=== PATIENT | male | born 1970 | race Two or more races ===

== ENCOUNTER 2017-03-04 08:13 | Observation (INO) | payer MEDICAID ==
[~2017-03-04] VITALS: Ht 172.7 cm; Wt 81.8 kg
--- NOTE | ~2017-03-04 | ECHO ---
Transthoracic Echocardiography Report (TTE) Demographics Patient Name MATILDA MEEK Date of Study 03/04/2017 Patient Number [id number] Visit Number [id number] Date of 1970 Room Number G6305 Accession Number [id number] Gender Male Age 46 year(s) Referring Erica Marie [employer] Chris Almazan RVAicha, Physician FARHEEN Physician Interpreting Sabrina Mike Irrigation Specialist Physician A Supervising Ordering Physician Jeremiah Britt MD, MD/MLP Nurse Stress Pharmaceutical Officer Conclusions Contractility Score Summary Normal Left Ventricular contractility was noted. Summary The estimated left ventricular ejection fraction is 50-55%. Normal left ventricle size and function. Diastolic assessment reveals normal relaxation. The left atrium is mildly dilated. Mild tricuspid regurgitation by color Doppler. Procedure Type of Study TTE procedure:2D Echocardiogram, Echo Limited w/o Contrast. Procedure Date Date: 03/04/2017 Start: 09:35 AM Study Location: ER Technical Quality: Good visualization Indications:Chest pain. Appropriate Use Criteria: 8 Patient Status: STAT Rhythm: NSR HR: 60 bpm BP: 104/71 mmHg Allergies - No known allergies. M-Mode/2D Measurements LV Diastolic Dimension: 3.55 cm LV Systolic Dimension: 2.41 cm LV Septum Diastolic: 0.83 cm LV PW Diastolic: 0.64 cm AO Root Dimension: 3 cm Cardiac Output: 3.75 l/min AV Cusp Separation: 1.7 cm RV Diastolic Dimension: 2.27 cm LA volume: 62 ml LVOT: 2 cm RV Base: 3.05 cm LVOT VTI: 19.9 cm RV Mid: 2.88 cm LV Stroke volume: 62.49 ml TAPSE: 1.39 cm TDI-S': 9.32 cm/s Doppler Measurements AV Peak Velocity: 1.01 m/s MV Peak E-Wave: 0.68 m/s AV Peak Gradient: 4.08 mmHg MV Peak A-Wave: 0.45 m/s AV Mean Gradient: 2 mmHg MV E/A Ratio: 1.51 LVOT Peak Velocity: 0.95 m/s MV P1/2t: 81 msec TR Gradient:13.25 mmHg PV Peak Velocity: 0.67 m/s Estimated RAP:5 mmHg PV Peak Gradient: 1.78 mmHg Estimated RVSP: 18 mmHg Estimated PASP: 18.25 mmHg E' Septal Velocity: 0.07 m/s A' Septal Velocity: 0.08 m/s E' Lateral Velocity: 0.13 m/s A' Lateral Velocity: 0.07 m/s Findings Left Ventricle Normal left ventricle size and function. Diastolic assessment reveals normal relaxation. Right Ventricle Normal right ventricle structure and function. Left Atrium The left atrium is mildly dilated. There is no evidence of patent foramen ovale or atrial septal defect by color Doppler. Right Atrium Normal right atrial size. Unable to assess IVC for collapse. Mitral Valve Normal mitral valve structure and function. Trivial mitral regurgitation by color Doppler. Aortic Valve Normal aortic valve structure and function. Tricuspid Valve Mild tricuspid regurgitation by color Doppler. Normal estimated pulmonary artery pressure. Pulmonic Valve Normal pulmonic valve structure and function. Pericardial Effusion No evidence of pericardial effusion. Miscellaneous Visualized portions of the aortic root and ascending aorta appear normal in size. Pleural Effusion No evidence of pleural effusion. Contractility Score LV regional wall motion:(0-Non visualized 1-Normal 2-Hypokinesis 3-Akinesis 4-Dyskinesis 5-Aneurysm) Signature dtt: Milena Bennett dtd: 03/04/17 0935 Physician Self Edit
--- NOTE | ~2017-03-04 | ER ---
PATIENT'S NAME: MATILDA MEEK [facility] AGE: 46 Y [address] ROOM: [place] [address] LOCATION: GPCU ADMIT DATE: 03/04/2017 ER/Outpatient Report DISCHARGE DATE: FAMILY PHYSICIAN: Igor Maldonado MD ATTENDING PHYSICIAN: Henny Davis CHIEF COMPLAINT: Chest pain. HISTORY OF PRESENT ILLNESS: The patient states that at 6 o'clock this morning, he developed pressure in his chest. There is a burning sensation associated with it, and this feels like prior heart attack. He has a history of several-vessel CABG done by Dr. Vieyra. He follows with Dr. Bennett, his continuous improvement consultant. He has been taking all his medications appropriately. He denies any pain in his back. It does not radiate to his jaw. The pain has been constant and increasing since its onset. He has received aspirin and nitro per EMS with slight decrease in his pain. He denies any drugs but does occasionally use marijuana. He quit smoking in 2016. Denies any other alcohol use. PAST MEDICAL HISTORY: Documented on the record and reviewed by me. SOCIAL HISTORY: Documented on the record and reviewed by me. MEDICATIONS: Documented on the record and reviewed by me. ALLERGIES: DOCUMENTED ON THE RECORD AND REVIEWED BY ME. REVIEW OF SYSTEMS: All systems were reviewed and negative except as noted in the HPI. PHYSICAL EXAMINATION: VITAL SIGNS: Blood pressure 113/79, pulse 67, respiratory rate is 19, temp 96.7, SpO2 is 100% on room air. Pain is rated at 8/10. GENERAL: An age-appropriate male, in moderate obvious pain, in no respiratory distress, recumbent on the exam table. NEURO: The patient is awake and alert. He moves all extremities appropriately. No focal deficits. No asymmetry on exam. Oriented to person, place, and situation. HEENT: Normocephalic, atraumatic. Eyes are PERRL. Oropharynx is clear. NECK: Supple. Trachea is midline. PATIENT'S NAME: MATILDA MEEK [facility] AGE: 46 Y [address] ROOM: [address] [address] LOCATION: GPCU ADMIT DATE: 03/04/2017 ER/Outpatient Report DISCHARGE DATE: FAMILY PHYSICIAN: Igor Maldonado MD ATTENDING PHYSICIAN: Henny Davis CHEST: Heart is regular rate and rhythm with no obvious murmurs. LUNGS: Grossly clear to auscultation bilaterally with no rhonchi, wheezes, or rales. There is some tenderness on the right side of the chest nonfocal. ABDOMEN: Soft, nontender, and nondistended. No rebound or guarding. No masses. BACK: Grossly normal to inspection and palpation. EXTREMITIES: Warm and well perfused. No evidence of DVT. SKIN: Warm, dry, and intact. No obvious rashes. LABORATORY DATA AND X-RAYS: Chest x-ray, grossly unremarkable per my read. EKG is a sinus rhythm, rate of 70 with normal intervals and axis. Some slight ST-segment elevation in the precordial leads, that does not meet criteria as compared to prior EKG from 09/28/2014, consistent with EMS EKGs. Repeat EKG remains stable with nonspecific ST-segment elevation. CMS without any abnormalities. Magnesium 2.1. CK-MB at 2.4. Troponin I is below threshold. CBC reveals WBC of 11.3, no other significant abnormalities. INR 0.93. D-dimer 0.37. IMPRESSION: Chest pain, concern for possible unstable angina. EMERGENCY DEPARTMENT COURSE: The patient was seen and evaluated as above. He received aspirin prior to arrival. Nitroglycerin was initiated, and the patient was given morphine, which did bring his pain down to an acceptable level; however, we were not able to make him chest pain free. He had no dynamic changes on his EKG indicative of active ischemia. With his history and persistent chest pain, I did consult Dr. Bennett, continuous improvement consultant. He is recommending admission. Echo was obtained, please see official report for details. The patient will be admitted to Dr. Davis at the [facility] for further evaluation and treatment of his chest pain. I do not think he has a PE, and D-dimer makes it extremely unlikely. All questions were answered, and the patient was admitted for further evaluation and treatment. MD RONALDO ARELLANO/kerri PATIENT'S NAME: MATILDA MEEK [facility] AGE: 46 Y [address] ROOM: [address] [address] LOCATION: [facility] ADMIT DATE: 03/04/2017 ER/Outpatient Report DISCHARGE DATE: FAMILY PHYSICIAN: Igor Maldonado MD ATTENDING PHYSICIAN: Henny Davis /[id number] d: 03/04/17 2326 t: 03/11/17 0638, OUTPATIENT REPORT
--- NOTE | ~2017-03-04 | CATH ---
Cardiac Diagnostic Report Demographics Patient Name FANTASMA Keller Gender Male Date of 1970 Age 46 year(s) Patient Number [id number] Date of Study 03/04/2017 Visit Number [id number] Room Number G6[address] [place] [id number] Ht 172.72 cm Wt 81.6 kg Referring Ryan Keller MD Primary Physician Physician Performing Efstratiou Secondary Physician Physician Rashid Merrill MD Diagnostic Efstratiou Assisting Physician Physician Rashid Merrill MD Interventional Physician Lock Assembler Physician Findings and Conclusions Diagnostic Findings and Conclusion Will revascularization severe three vessel [place] CAD. Diagnostic Recommendations Continue medical therapy Add low dose amlodapine Procedure Description The patient was brought to the diagnostic cardiac catheterization-EP laboratory in the fasting, non-sedated state. Informed consent was obtained in the written and verbal form after the risks and benefits were explained. The patient had no further questions and agreed to proceed. The planned puncture-incision site(s) were shaved and prepped with ChloraPrep and draped in the usual sterile manner. Conscious sedation, supplemental oxygen, and pain control medications were delivered by a registered nurse under physician guidance. Surface ECG rhythm, blood pressure measurement, and pulse oximetry were monitored throughout the procedure. Arterial access. The access site was infiltrated with lidocaine. The vessel was entered with the Seldinger technique. A sheath was advanced into the vessel and used for catheter placement. Selective left coronary angiography. A catheter was advanced into the left coronary vessel ostium under Fluoroscopic guidance. Contrast was injected by hand. Images were obtained in multiple projections. Selective right coronary angiography. A catheter was advanced into the right coronary vessel ostium under fluoroscopic guidance. Contrast was injected by hand. Images were obtained in multiple projections. Selective SHEPPARD graft angiography. A catheter was advanced into the left internal mammary graft ostium under fluoroscopic guidance. Contrast was injected by hand. Images were obtained in multiple projections. Selective SVG angiography. A catheter was advanced into the graft proximal anastomosis under fluoroscopic guidance. Contrast was injected by hand. Images were obtained in multiple projections. Left heart catheterization. A catheter was advanced across the aortic valve to the left ventricle under fluoroscopic guidance. Resting hemodynamics were obtained. Arterial artery hemostasis. Hemostasis was achieved. The patient was transferred to a regular nursing floor via cart accompanied by a nurse. The patient left the laboratory in stable condition. Diagnostic Cath Status: Urgent Procedure Procedure Type Indications: Chest pain and Unstable angina. The procedure was explained in detail to the patient. Risks, complications and alternative treatments were reviewed. Written consent was obtained. Medications Reviewed with Patient prior to Procedure. Angiographic Findings Dominance: Right Cardiac Arteries and Lesion Findings LMCA: Lesion on LMCA: Ostial.30% stenosis . Lesion on LMCA: Distal subsection.25% stenosis . LAD: Lesion on Prox LAD: Proximal subsection.100% stenosis .Chronic total occlusion. Lesion on 1st Dia% stenosis . Lesion on 2nd Dia% stenosis . LCx: Lesion on Mid CX: Mid subsection.100% stenosis . RCA: Lesion on Mid RCA: Proximal subsection.100% stenosis .Chronic total occlusion. Cardiac Grafts - There is a graft that originates at the SHEPPARD and attaches to the Dist LAD (Patent). - There is a graft that originates at the Aorta Left and attaches to the 1st Diag (Patent). - There is a graft that originates at the Aorta Left and attaches to the 1st Ob Janina (Patent). - There is a graft that originates at the Aorta Right and attaches to the R PDA (Patent). Cardiac Collaterals - collateral flow from the Dist LAD to the R PAV. Coronary Tree Procedure Data Procedure Date Date: 03/04/2017Start: 02:49 PMEnd: 03:10 PM Entry Locations - Retrograde Percutaneous access was performed through the Right Femoral artery (Primary location). A 6 Fr sheath was inserted. Hemostasis was successfully obtained using Angio-Seal STS PLUS ([facility]). Closure Comments: Deployed by Dr Bennett. Procedure Medications Order and Administration + + +-------+-------+ !Time !Medication !Dosage !Route ! + + +-------+-------+ !03/04/2017 02:37 PM !Fentanyl !50 mcg !I.V. ! + + +-------+-------03/04/2017 02:43 PM !Versed !1 mg !I.V. ! + + +-------+-------03/04/2017 02:49 PM !Fentanyl !50 mcg !I.V. ! + + +-------+-------03/04/2017 03:01 PM !Heparin (ACC_3) ! ! ! + + +-------+-------+ Devices Used - A6 Fr. BS JL 4 Diag. Catheterwas used for:Left coronary angiography. - A6 Fr. BS JR 4 Diag. Catheterwas used for:Right coronary angiography. Contrast Material - Isovue 04393 ml Fluoroscopy Time: Diagnostic: 5:18 minutes. Total: 5:18 minutes. Fluoroscopy Dose: Diagnostic: 1028 mGy. Total: 1028 mGy. Estimated Blood Loss: 10 ml. Medical History Performed Procedures and Imaging Results - No ACC stress or imaging studies were performed. Allergies - No known allergies. Risk Factors The patient risk factors include:prior CABG;hypertension, last creatinine: 1.1 mg/dl, creatinine clearance: 96.85 ml/min, dyslipidemia, former tobacco use and prior [place] . Admission Data Admission Date: 03/04/2017 Admission Time: 10:40 AM Admit Source: Emergency department Insurance Payors: Medicaid. Admission Medications + +------+-----+---------+---------+ + + !Medication !Dosage!Times!Last !Last !Administered !Comments ! ! ! !Per !Delivery !Delivery ! ! ! ! ! !Day !Date !Time ! ! ! + +------+-----+---------+---------+ + + !Aspirin (any) ! ! ! ! !Yes ! ! + +------+-----+---------+---------+ + + !Beta Meggan ! ! ! ! !Yes ! ! !(any) ! ! ! ! ! ! ! + +------+-----+---------+---------+ + + !Statin (any) ! ! ! ! !Yes ! ! + +------+-----+---------+---------+ + + !Unfractionated ! ! ! ! !Yes ! ! !Heparin (any) ! ! ! ! ! ! ! + +------+-----+---------+---------+ + + Clinical Evaluation Leading to Procedure - The patient's CAD presentation was assessed as: Unstable angina. - The patient's anginal syndrome during the past two weeks was assessed as: Class IV according to the [place] Cardiovascular Society Classification System (CCS). Anti-anginal medications were prescribed during the past two weeks. The medication is: Beta Blockers. Snapshots Hemodynamics Condition: Rest O2 Consumption: Estimated: 221.29Heart Rate: 51 bpm Pressures (mmHg) +-----+ + !Site !Pressure ! +-----+ + !AO !110/69 (86) ! +-----+ + !LV !110/1 ,7 ! +-----+ + !LV !112/3 ,10 ! +-----+ + !AO !123/76 (96) ! +-----+ + !LV !111/3 ,9 ! +-----+ + Valve Gradients and Areas + +---------+---------+---------+ +---------+ + !Valve !Peak !Mean !Area !Index !Flow !Source ! + +---------+---------+---------+ +---------+ + !Aortic !0 !0 ! ! ! ! ! + +---------+---------+---------+ +---------+ + !Aortic !0 !0 ! ! ! ! ! + +---------+---------+---------+ +---------+ + Shunts Oxygen Values O2 Capacity 208.08 O2 Consumption 221.29 Signatures dtt: Milena Bennett dtd: 03/04/17 1449 Physician Self Edit
--- NOTE | ~2017-03-04 | HP ---
PATIENT'S NAME: MATILDA MEEK [facility] AGE: 46 Y [address] ROOM: [place] [address] LOCATION: GPCU ADMIT DATE: 03/04/2017 History & Physical DISCHARGE DATE: FAMILY PHYSICIAN: Igor Maldonado MD ATTENDING PHYSICIAN: Henny Davis DATE OF SERVICE: CHIEF COMPLAINT: Chest pain. HISTORY OF PRESENT ILLNESS: Matilda is a 46-year-old gentleman with a known history of coronary artery disease who woke up at 6 this morning with severe chest pain, midsternal to the right. It is very severe at 10/10. It was associated with nausea, shortness of breath, and near-syncope. He was seen in the emergency room. Initial enzymes were negative. Dr. Bennett was consulted. Dr. Callaway did end up taking him down for a heart cath today prior to my seeing Matilda. The heart cath was negative. Matilda's risk factors include known history of coronary artery disease, recent aspirin use, history of hyperlipidemia, history of tobacco use, and family history of heart disease. PAST MEDICAL HISTORY: Operations include back surgery x2, coronary artery bypass graft in 2014, an upper scope in 2014, which showed esophagitis and gastritis. Illnesses include coronary artery disease, bipolar disorder, gastroesophageal reflux, and rheumatoid arthritis. CURRENT MEDICATIONS: 1. Aspirin 81 mg daily. 2. Atorvastatin 40 mg daily. 3. Calcium Tums 3 tablets t.i.d. p.r.n. 4. Folic acid 1 mg daily. 5. Methotrexate 0.8 mL subcutaneously every 7 days. 6. Metoprolol tartrate 25 mg b.i.d. ALLERGIES: NONE KNOWN. FAMILY HISTORY: Mother with coronary artery disease and paternal grandfather with cancer. SOCIAL HISTORY: He quit smoking about a year ago. He does not drink any alcohol. He does drink coke up to 12 pops a day. He has 4 children who are all alive and well. PATIENT'S NAME: MATILDA MEEK [facility] AGE: 46 Y [address] ROOM: [place] [address] LOCATION: GPCU ADMIT DATE: 03/04/2017 History & Physical DISCHARGE DATE: FAMILY PHYSICIAN: Igor Maldonado MD ATTENDING PHYSICIAN: Henny Davis He had a pneumonia shot in 2008 and last influenza shot was 2015. He did not have one last fall. REVIEW OF SYSTEMS: GENERAL: Negative. ENT: He has had a runny nose. CARDIOVASCULAR: Severe chest pain. See HPI. RESPIRATORY: He has had just a minimal cough due to prior smoking. GI: His stomach is upset frequently. He did vomit this morning prior to coming in. No diarrhea, constipation, or blood in the stools. : No problems with urination. MUSCULOSKELETAL: He has arthritis in hands, knees, hips, feet, and neck at times. He sees a echocardiograph technician. NEURO: He does have some left hand numbness at times and it will wake him up. No prior stroke or TIA. DERM: Negative. PSYCH: He has a history of anxiety and bipolar. He is currently off of his medications and needs to get in to see Dr. Maldonado. PHYSICAL EXAMINATION: GENERAL: Matilda is a well-developed, well-nourished, 46-year-old gentleman. He is currently alert, cooperative, and in no acute distress. VITAL SIGNS: Stable. His pulse is 60 and regular, O2 sat well above 90%, he is afebrile, blood pressure is within normal limits. See nurse's note. ENT: Pupils are equal. Extraocular muscles intact. Sclerae clear. Oropharynx unremarkable. NECK: Supple without masses. HEART: Regular rate and rhythm without murmurs. LUNGS: Lung sounds revealed loose rhonchi posteriorly. ABDOMEN: Soft. No organomegaly, masses, or tenderness. EXTREMITIES: Intact. No pitting edema. Distal pulses are intact. LABORATORY DATA: Chest x-ray was read as negative. Initial EKG sinus rhythm at a rate of 59. Borderline ST-elevation in the inferior leads. Chemistries were all within normal limits. Magnesium, CK, CK-MB, and troponin are all negative. His D- dimer was elevated. CT of the chest with PE protocol was normal. His INR 0.93, PTT 26. CBC normal except white count 11.3. ASSESSMENT: 1. Acute coronary syndrome/chest pain. 2. History of coronary artery disease. 3. Rheumatoid arthritis. 4. Bipolar disease, off of medications. 5. Nonadherence. PATIENT'S NAME: MATILDA MEEK [facility] AGE: 46 Y [address] ROOM: [address] [address] LOCATION: [facility] ADMIT DATE: 03/04/2017 History & Physical DISCHARGE DATE: FAMILY PHYSICIAN: Igor Maldonado MD ATTENDING PHYSICIAN: Henny Davis 6. Prior tobacco use. 7. Gastrointestinal reflux disease. PLAN: He is being admitted for observation. Dr. Bennett has seen him and taken him to the General Doc already. We will offer a proton pump inhibitor and antiinflammatory meds for his symptoms. Further cardiac care per Dr. Bennett. I will follow as Dr. Maldonado is out-of-town. If heart cath is okay, anticipate that he will get to go home tomorrow. MD NITZA REAL/trevinl /[id number] D: [id number] T: [id number] HISTORY & PHYSICAL
--- NOTE | ~2017-03-04 | DS ---
PATIENT'S NAME: MATILDA MEEK [facility] AGE: 46 Y [address] ROOM: [place] [address] LOCATION: GPCU ADMIT DATE: 03/04/2017 Discharge Summary DISCHARGE DATE: 03/05/2017 FAMILY PHYSICIAN: Igor Maldonado MD ATTENDING PHYSICIAN: Henny Davis PRINCIPAL DIAGNOSES: 1. Acute coronary syndrome. 2. Stable heart catheterization. 3. Chest wall pain. 4. Gastroesophageal reflux disease. 5. Bipolar with nonadherence. 6. Prior tobacco use. 7. Rheumatoid arthritis. 8. Hyperlipidemia. SUMMARY: Matilda is a 46-year-old gentleman who is admitted through the ER with a severe acute chest pain, which was relieved by nitroglycerin. Dr. Bennett consulted in the ER and ended up taking him down for a heart catheterization. The cath was stable with no new acute blockages. Postoperatively, he did fine, he continued to have some discomfort, which was relieved with Protonix and Naprosyn. He is currently asymptomatic and doing well. No postop problems. DISMISSAL: Matilda is dismissed, postop day 1 from heart cath, in good condition. DISMISSAL MEDICATIONS: 1. Enteric-coated aspirin 81 mg daily. 2. Atorvastatin 40 mg daily, half of an 80 mg tablet. 3. Folic acid 1 mg daily. 4. Metoprolol tartrate 25 mg b.i.d. 5. Naprosyn 500 mg b.i.d. p.r.n. with food. 6. Protonix 40 mg daily half-hour a.c. 7. Methotrexate 0.8 mL subcutaneously once weekly. 8. Tums 3 tablets 3 times daily. 9. He has not been taking his bipolar medications and will be following up with Dr. Maldonado in about 3 days to get those restarted. DISCHARGE INSTRUCTIONS: Continue with healthy habits; otherwise, cardiac prudent diet, activity as tolerated, and avoidance of tobacco use. PROGNOSIS: Fair. FOLLOW UP: He will follow up with Dr. Bennett per his recommendations. PATIENT'S NAME: MATILDA MEEK [facility] AGE: 46 Y [address] ROOM: [place] [address] LOCATION: GPCU ADMIT DATE: 03/04/2017 Discharge Summary DISCHARGE DATE: 03/05/2017 FAMILY PHYSICIAN: Iogr Maldonado MD ATTENDING PHYSICIAN: Henny Davis MD NITZA REAL/modl /[id number] d: 03/06/17 0233 t: 03/06/17 0804, DISCHARGE SUMMARY
[2017-03-04 08:29] LABS: BASOPHIL # 0.1 K/uL (0.0-0.2); BASOPHIL % 0.7 %; EOSINOPHIL # 0.3 K/uL (0.0-0.5); EOSINOPHIL % 2.5 %; HEMATOCRIT 44.9 % (37.0-53.0); HEMOGLOBIN 15.3 g/dL (12.0-17.0); IMMATURE GRANULOCYTE % 0.2 %; LYMPHOCYTE % 35.3 %; MCH 30.7 pg (27.0-34.0); MCHC 34.1 gm/dL (32.0-36.5); MONOCYTE % 8.8 %; MPV 9.9 fl (9.4-12.4); NEUTROPHIL # (ANC) 5.9 K/uL (1.4-9.0); NEUTROPHIL % 52.5 %; NRBC % 0 /100WBC (0-0.00); PLATELET COUNT 270 K/uL (150-450); RBC 4.99 M/uL (4.00-6.00); WBC 11.3 K/uL (4.0-11.0)
[2017-03-04 08:38] LABS: INR - (THERAPEUTIC) 0.93 (0.92-1.07); PROTIME 9.8 SECONDS (9.8-11.4); PTT 26 SECONDS (25-32)
[2017-03-04 08:49] LABS: ALK PHOS 122 IU/L (33-138); ALT 22 IU/L (12-78); ANION GAP 13.7 (10.0-19.0); AST 18 IU/L (10-40); BLOOD UREA NITROGEN 20 mg/dL (6-24); CALCIUM 8.7 mg/dL (8.5-10.5); CHLORIDE 108 mMol/L (96-110); CO2 25 mMol/L (22-32); CPK 246 IU/L (35-332); CREATININE 1.1 mg/dL (0.6-1.3); ESTIMATED GFR (MDRD EQUATION) > 60; MAGNESIUM 2.1 mg/dL (1.3-2.6); POTASSIUM 3.7 mMol/L (3.7-5.1); SODIUM 143 mMol/L (135-145); TOTAL PROTEIN 6.9 g/dL (6.0-8.4)
[2017-03-04 10:42] LABS: CPK 224 IU/L (35-332)
--- NOTE | 2017-03-04 12:10 | NUR ---
PT is 46 y/o male admit for chest pain for . Pt alert and oriented x3. No allergies. States his chest pain woke him up early this am and he was diaphoretic and nauseated. He has hx CABG and an GA 2 yrs ago. Pt called unit and was brought to ED. Also has hx RA,hypercholest,gerd,heartburn,anxiety, bipolar. Pt resides at home alone. Sister at bedside. PT and family report they were told pt had an GA this am.
[2017-03-04] MEDS ORDERED: ASPIRIN LO-DOSE81 MG PO (12:34)
[2017-03-04] MEDS ORDERED: LIPITOR80 MG PO (12:34)
[2017-03-04] MEDS ORDERED: FOLIC ACID1 MG PO (12:35)
[2017-03-04] MEDS ORDERED: LOPRESSOR25 MG PO (12:35)
[2017-03-04] MEDS ORDERED: METHOTREXA25 MG/1 M3 SUB-Q (12:36)
[2017-03-04] MEDS ORDERED: TUMS REGULAR ST1 TAB PO (12:37)
--- NOTE | 2017-03-04 15:25 | NUR ---
Significant Event:A/O x 3, cooperative with cares. CP to R) chest 7-07/04 prior to heart cath. Nitro titrated for pain, then 2 mg Morphine given around 1300 with relief. Down to laborer shaft sinking from 1430 thru 1515. R) groin angiocath. To be flat until 1715. Normal saline at 100 mls/hr. Nitroglycerin and heparin stopped. Family at bedside. Follow up: Continue plan of care.
--- NOTE | 2017-03-05 04:46 | NUR ---
Significant Event: A&Ox3, VSS on room air. Right groin soft and slightly tender to touch, Dressing C/D/I. Patient vomited a small amount while getting up to void. Zofran given with relief. Transfers with SBA. Two moderate voids this shift. Denies needs. Pleasant and cooperative with cares. Follow up: possible D/C today.
[2017-03-05 05:37] LABS: BLOOD UREA NITROGEN 20 mg/dL (6-24); CALCIUM 8.4 mg/dL (8.5-10.5); CHLORIDE 112 mMol/L (96-110); CO2 23 mMol/L (22-32); CREATININE 0.9 mg/dL (0.6-1.3); ESTIMATED GFR (MDRD EQUATION) > 60; SODIUM 143 mMol/L (135-145)
[2017-03-05] MEDS ORDERED: PROTONIX40 MG PO (11:25)
[2017-03-05] MEDS ORDERED: NAPROSYN500 MG PO (11:26)
--- NOTE | 2017-03-05 11:50 | NUR ---
Introduced self and role of care management to patient. He lives by himself in [place]. He states that he is able to do all his own ADL's. He does have family and friends that can assist if needed. He plans on returning home on discharge. He denies any need at this time. Will continue to follow.
--- NOTE | 2017-03-05 13:47 | NUR ---
PATIENT DISMISSED TO HOME W/ FAMILY PER PRIVATE AUTO. REVIEWED DISMISSAL INSTRUCTIONS WITH PATIENT, INCLUDING HEART CATH SITE CARE, AND THE PATIENT VERBALIZED UNDERSTANDING. INFORMATION SHEETS ABOUT NEW MEDICATIONS AND HEART HEALTHY DIET WERE GIVEN TO PATIENT.
[2017-03-22] MEDS ORDERED: CPAP INH (10:29)
== END 2017-03-05 12:16 | disposition disaster alternative care site (69) ==
LOC: GMED 08:13 → GPCU 10:40
PROVIDERS: Emergency Medicine; ADMIT Family Medicine
DX: I24.9 Acute ischemic heart disease, unspecified (principal); I25.810 Atherosclerosis of coronary artery bypass graft(s) without angina pectoris; K21.9 Gastro-esophageal reflux disease without esophagitis; F31.89 Other bipolar disorder; E78.5 Hyperlipidemia, unspecified; M06.9 Rheumatoid arthritis, unspecified; Z87.891 Personal history of nicotine dependence; Z98.61 Coronary angioplasty status; Z79.82 Long term (current) use of aspirin; Z79.899 Other long term (current) drug therapy
CPT/HCPCS: C1760; G0378; J1644; J2250; J2270; J2405; J3010; J7030

== ENCOUNTER → 2017-03-04 | Outpatient (CLI) | payer MEDICAID ==
[~2017-03-04] MED LIST: ASPIRIN LO-DOSE81 MG PO; CPAP INH; FOLIC ACID1 MG PO; LIPITOR80 MG PO; LOPRESSOR25 MG PO; METHOTREXA25 MG/1 M3 SUB-Q; NAPROSYN500 MG PO; NORCO 5-325 TA1 EACH PO; PROTONIX40 MG PO; TUMS REGULAR ST1 TAB PO
== END | disposition disaster alternative care site (69) ==
LOC: GAMB 07:48
DX: I20.9 Angina pectoris, unspecified (principal); R07.9 Chest pain, unspecified; I10 Essential (primary) hypertension; Z79.899 Other long term (current) drug therapy
CPT/HCPCS: A0425; A0427

== ENCOUNTER 2017-03-26 08:43 | Day surgery (SDC) | payer MEDICAID ==
[~2017-03-26] VITALS: Ht 172.7 cm; Wt 73.6 kg
--- NOTE | ~2017-03-26 | OR ---
PATIENT'S NAME: MATILDA MEEK [facility] AGE: 46 Y [address] ROOM: [place] [id number] LOCATION: [facility] [place] AD[place] DATE: 03/26/2017 OR/Procedure Report DISCHARGE DATE: 03/26/2017 FAMILY PHYSICIAN: Igor Maldonado MD ATTENDING PHYSICIAN: Iftikhar Barber SURGEON: Iftikhar Barber DO INSPECTOR SUBASSEMBLY: DATE OF PROCEDURE: 03/26/2017 PREOPERATIVE DIAGNOSIS: Painful sternal wires. POSTOPERATIVE DIAGNOSIS: Painful sternal wires. PROCEDURE: Removal of sternal wires x4. SURGERY AND FINDINGS: The patient is a 46-year-old male with history of coronary artery bypass grafting recently, has begun complaining of some pain associated with his wires. He has been referred for the removal of the wires. An informed consent has been obtained. The previous incision was sterilely draped, 1% lidocaine was used to infiltrate the area in addition to general anesthetic. Incisions were carried out over the wire and each wire was cut and removed. Each incision was then closed with 2-0 Vicryl and 4-0 Monocryl. The patient tolerated the procedure well and was transferred to the recovery area in stable condition. IFTIKHAR BARBER DO MCB/modl /[id number] d: 04/01/17 1350 t: 04/02/17 1010, OPERATIVE SUMMARY
[~2017-03-26 08:43] MED LIST changes: -NORCO 5-325 TA1 EACH PO
[2017-03-26 09:52] LABS: ALBUMIN 3.9 gm/dL (3.5-5.0); ANION GAP 9.6 (10.0-19.0); BLOOD UREA NITROGEN 12 mg/dL (6-24); CALCIUM 8.5 mg/dL (8.5-10.5); CHLORIDE 108 mMol/L (96-110); CO2 29 mMol/L (22-32); ESTIMATED GFR (MDRD EQUATION) > 60; PHOSPHORUS 3.3 mg/dL (2.5-4.9); POTASSIUM 3.6 mMol/L (3.7-5.1); SODIUM 143 mMol/L (135-145)
[2017-03-26 09:58] LABS: INR - (THERAPEUTIC) 0.95 (0.92-1.07)
[2017-03-26 10:07] LABS: BASOPHIL # 0.1 K/uL (0.0-0.2); BASOPHIL % 1.4 %; EOSINOPHIL # 0.3 K/uL (0.0-0.5); EOSINOPHIL % 4.3 %; HEMATOCRIT 44.5 % (37.0-53.0); IMMATURE GRANULOCYTE % 0.1 %; LYMPHOCYTE # 2.8 K/uL (0.8-4.0); LYMPHOCYTE % 39.2 %; MCH 30.8 pg (27.0-34.0); MCHC 33.7 gm/dL (32.0-36.5); MCV 91.4 fl (83.0-98.0); MONOCYTE # 0.7 K/uL (0.0-1.0); MONOCYTE % 9.8 %; NEUTROPHIL # (ANC) 3.2 K/uL (1.4-9.0); NEUTROPHIL % 45.2 %; NRBC % 0 /100WBC (0-0.00); PLATELET COUNT 292 K/uL (150-450); RBC 4.87 M/uL (4.00-6.00); RDW-CV 13.7 % (11.9-14.6); WBC 7.1 K/uL (4.0-11.0)
[2017-03-26] MEDS ORDERED: NORCO 5-325 TA1 EACH PO (12:17)
== END 2017-03-26 12:50 | disposition disaster alternative care site (69) ==
LOC: GSDC 08:43 → GPOC 10:00 → GSDC 12:50
PROVIDERS: Thoracic Surgery (Cardiothoracic Vascular Surgery)
PROC: 0PC00ZZ Extirpation of Matter from Sternum, Open Approach (ICD-10-PCS; principal; 2017-03-26)
DX: T84.84XA Pain due to internal orthopedic prosthetic devices, implants and grafts, initial encounter (principal); I10 Essential (primary) hypertension; I25.119 Atherosclerotic heart disease of native coronary artery with unspecified angina pectoris; K21.9 Gastro-esophageal reflux disease without esophagitis; G47.33 Obstructive sleep apnea (adult) (pediatric); E78.5 Hyperlipidemia, unspecified; Z95.1 Presence of aortocoronary bypass graft; Z99.89 Dependence on other enabling machines and devices; Z79.82 Long term (current) use of aspirin; Z79.899 Other long term (current) drug therapy
CPT/HCPCS: J0690; J7030